=== PATIENT | male | born 1940 | race Caucasian/White ===

== ENCOUNTER → 2016-12-11 18:24 | Emergency (ER) | payer MEDICARE, OTHER ==
[~2016-12-11 18:24] MED LIST: DOXYcycline CAP(*) 100 MG PO ONE
[2016-12-11 20:04] VITALS: BP 158/77
--- NOTE | 2017-02-05 21:05 | ED ---
Bite Injury/Animal - HPI Summary HPI Summary: Pt here w/ tick attached to Lt lower back. No other complaints. Needs assistance removing. He is unsure of length of time of attachment. Imms are UTD. No pain, no rash. - History of Current Complaint Chief Complaint: EDAnimalBite Stated Complaint: TICK Time Seen by Provider: 12/11/16 18:57 Hx Obtained From: Patient Pain Intensity: 0 Pain Scale Used: 0-10 Numeric - Allergies/Home Medications Allergies/Adverse Reactions: Allergies Allergy/AdvReac Type Severity Reaction Status Date / Time No Known Allergies Allergy Verified 12/11/16 18:26 PMH/Surg Hx/FS Hx/Imm Hx Previously Healthy: Yes Endocrine/Hematology History: Reports: Hx Thyroid Disease - HYPO Denies: Hx Anticoagulant Therapy, Hx Blood Disorders, Hx Diabetes Cardiovascular History: Reports: Hx Coronary Artery Disease - 2004 TRIPLE BYPASS , Hx Hypertension - ON MEDS Denies: Hx Congestive Heart Failure, Other Cardiovascular Problems/Disorders Respiratory History: Reports: Hx Sleep Apnea - MILD Denies: Other Respiratory Problems/Disorders GI History: Denies: Other GI Disorders History: Denies: Hx Renal Disease Musculoskeletal History: Denies: Other Musculoskeletal History Sensory History: Reports: Hx Cataracts - LEANN, Hx Contacts or Glasses - GLASSES Denies: Hx Hearing Aid Opthamlomology History: Reports: Hx Cataracts - LEANN, Hx Contacts or Glasses - GLASSES Neurological History: Denies: Other Neuro Impairments/Disorders - Surgical History Surgery Procedure, Year, and Place: 2004, [facility]LE BYPASS, [facility]. LEFT ARM FX A CHILD. 2005, [facility], [facility] Hx Anesthesia Reactions: No - Immunization History Immunizations Up to Date: Yes Infectious Disease History: No Infectious Disease History: Denies: Hx of Known/Suspected MRSA, Traveled Outside the [place] in Last 30 Days - Social History Alcohol Use: None Substance Use Type: Reports: None Smoking Status (MU): Never Smoked Tobacco Review of Systems Negative: Fever, Chills, Fatigue Negative: Chest Pain Negative: Shortness Of Breath Positive: no symptoms reported Negative: Arthralgia Skin: Other - see HPI Psychological: Normal All Other Systems Reviewed And Are Negative: Yes Physical Exam Triage Information Reviewed: Yes Vital Signs On Initial Exam: Initial Vitals Temp Pulse Resp BP Pulse Ox 97.4 F 72 18 176/91 97 12/11/16 18:26 12/11/16 18:26 12/11/16 18:26 12/11/16 18:26 12/11/16 18:26 Vital Signs Reviewed: Yes Appearance: Positive: Well-Appearing, No Pain Distress, Well-Nourished Skin: Positive: Warm, Dry - tick attached to Lt lower back - no EM rash Respiratory/Lung Sounds: Positive: Breath Sounds Present Cardiovascular: Positive: Pulses are Symmetrical in both Upper and Lower Extremities Musculoskeletal: Positive: Strength/ROM Intact Neurological: Positive: Sensory/Motor Intact, Alert, Oriented to Person Place, Time Psychiatric: Positive: Normal Procedures - Procedure Summary Procedure Summary: Tick removed completely w/ tick remover - area cleaned after with alcohol - pt tolerated well Diagnostics - Vital Signs Vital Signs Temp Pulse Resp BP Pulse Ox 12/11/16 19:50 99.5 F 58 16 158/77 12/11/16 18:26 97.4 F 72 18 176/91 97 - Laboratory Lab Statement: Any lab studies that have been ordered have been reviewed, and results considered in the medical decision making process. Bite Injury Course/Dx - Course Course Of Treatment: Pt here w/ tick attached. Tick was removed and pt prophylactically treated with doxycycline. Reviewed danger s/sx of when to f/u. - Diagnoses Provider Diagnosis: Tick bite of back Discharge - Discharge Plan Condition: Stable Disposition: HOME Patient Education Materials: Tick Bite (ED) Referrals: Nathan Gallo MD [Primary Care Provider] - Additional Instructions: Keep wound clean - monitor for signs of erythema migrans rash (aka "bulls eye" rash). Follow-up with PCP next week. *If you develop fever, chills, joint aches, headache, palpitations, chest pain, follow-up with PCP JUANITO
== END | disposition home or self-care (01) ==
LOC: ED 18:24
DX: S30.860A Insect bite (nonvenomous) of lower back and pelvis, initial encounter (principal); W57.XXXA Bitten or stung by nonvenomous insect and other nonvenomous arthropods, initial encounter; Y93.9 Activity, unspecified; Y92.9 Unspecified place or not applicable; E03.9 Hypothyroidism, unspecified; I25.10 Atherosclerotic heart disease of native coronary artery without angina pectoris; I10 Essential (primary) hypertension; Z95.1 Presence of aortocoronary bypass graft; G47.30 Sleep apnea, unspecified
CPT/HCPCS: 99281; A9270-GY

== ENCOUNTER 2019-07-23 13:40 | Emergency (ER) | payer MEDICARE, OTHER ==
[2019-07-23] MEDS ORDERED: ceFAZolin 1 GM ADVAN(*) 1 GM in NS 0.9% 50 ML* 50 ML IVPB ONE (14:52)
--- NOTE | 2019-07-23 15:07 | ED ---
Lower Extremity - HPI Summary HPI Summary: 79-year-old presents with rash to left foot for the past couple days. He states it started on is left toe. Was concerned that he had gout which he states he has a history of. His states the redness has been spreading up the foot today. He states the area has been swelling to the entire foot today. He states he was seen in urgent care and they test his uric acid level and it was normal and had a normal foot x-ray. He denies any fevers or chills. Denies any chest pain or shortness of breath. Denies any coughing. Denies any other symptoms. He is diabetic. he denies any known injury. - History of Current Complaint Chief Complaint: EDExtremityLower Stated Complaint: LEFT FOOT PAIN Time Seen by Provider: 07/23/19 14:40 Pain Intensity: 5 - Allergies/Home Medications Allergies/Adverse Reactions: Allergies Allergy/AdvReac Type Severity Reaction Status Date / Time prednisone Allergy Altered Verified 07/23/19 14:02 Mental Status PMH/Surg Hx/FS Hx/Imm Hx Endocrine/Hematology History: Reports: Hx Thyroid Disease - HYPO Denies: Hx Anticoagulant Therapy, Hx Blood Disorders, Hx Diabetes Cardiovascular History: Reports: Hx Coronary Artery Disease - 2004 TRIPLE BYPASS , Hx Hypertension - ON MEDS Denies: Hx Congestive Heart Failure, Other Cardiovascular Problems/Disorders Respiratory History: Reports: Hx Sleep Apnea - MILD Denies: Other Respiratory Problems/Disorders GI History: Denies: Other GI Disorders History: Denies: Hx Renal Disease Musculoskeletal History: Denies: Other Musculoskeletal History Sensory History: Reports: Hx Cataracts - [facility], Hx Contacts or Glasses - GLASSES Opthamlomology History: Reports: Hx Cataracts - [facility], Hx Contacts or Glasses - GLASSES Neurological History: Denies: Other Neuro Impairments/Disorders - Surgical History Surgery Procedure, Year, and Place: 2005, [facility], [facility]. LEFT ARM FX A CHILD. 2005, [facility], [facility] Hx Anesthesia Reactions: No Infectious Disease History: No Infectious Disease History: Denies: Hx of Known/Suspected MRSA, Traveled Outside the [place] in Last 30 Days - Family History Known Family History: Positive: Non-Contributory - Social History Alcohol Use: None Substance Use Type: Reports: None Smoking Status (MU): Never Smoked Tobacco Review of Systems Negative: Fever Negative: Chest Pain Negative: Shortness Of Breath Positive: Edema - left foot Positive: Rash All Other Systems Reviewed And Are Negative: Yes Physical Exam Triage Information Reviewed: Yes Vital Signs On Initial Exam: Initial Vitals Temp Pulse Resp BP Pulse Ox 97.5 F 79 19 150/88 96 07/23/19 14:00 07/23/19 14:00 07/23/19 14:00 07/23/19 14:00 07/23/19 14:00 Vital Signs Reviewed: Yes Appearance: Positive: Well-Appearing Skin: Positive: Warm, Dry, Other - erythema with warmth to top of left foot Head/Face: Positive: Normal Head/Face Inspection Eyes: Positive: Normal, Conjunctiva Clear ENT: Positive: Pharynx normal Respiratory/Lung Sounds: Positive: Clear to Auscultation, Breath Sounds Present Cardiovascular: Positive: Normal, RRR Musculoskeletal: Positive: Strength/ROM Intact - left foot, Other - good pulses , edema noted to left foot, nontender calf Neurological: Positive: Normal Psychiatric: Positive: Normal Procedures - Sedation Patient Received Moderate/Deep Sedation with Procedure: No Diagnostics - Vital Signs Vital Signs Temp Pulse Resp BP Pulse Ox 07/23/19 14:00 97.5 F 79 19 150/88 96 - Laboratory Result Diagrams: 07/23/19 15:07 07/23/19 15:07 Lab Statement: Any lab studies that have been ordered have been reviewed, and results considered in the medical decision making process. Lower Extremity Course/Dx - Course Course Of Treatment: 79-year-old presents with rash to left foot for the past couple days. He states it started on is left toe. Was concerned that he had gout which he states he has a history of. His states the redness has been spreading up the foot today. He states the area has been swelling to the entire foot today. He states he was seen in urgent care and they test his uric acid level and it was normal and had a normal foot x-ray. He denies any fevers or chills. Denies any chest pain or shortness of breath. Denies any coughing. Denies any other symptoms. He is diabetic. On exam has edema noted to left foot. Has erythema and warmth of the area. Gave dose of cefazolin. White blood cell count 11. renal function similiar to previous. urine shows potential uti but patient denies uti symptoms. will treat cellulitis with keflex which would cover for potential uti. told follow up with primary. warned signs return to ED for. patient understand and agrees with plan. - Diagnoses Differential Diagnosis/HQI/PQRI: Positive: Cellulitis, Contusion, Other - gout Provider Diagnoses: Cellulitis of left foot Discharge ED - Sign-Out/Discharge Documenting (check all that apply): Patient Departure - Discharge Plan Condition: Good Disposition: HOME Prescriptions: Cephalexin CAP* [Keflex CAP*] 500 mg PO TID #30 cap Patient Education Materials: Cellulitis (ED) Referrals: Nathan Gallo MD [Primary Care Provider] - Additional Instructions: Take Keflex three a day for 10 days elevate leg Take tyenlol every 6 hours for pain Follow up with primary within 3 days Return to ED if develop fever, area of redness spreads after two days on antibiotics, or any new or worsening symptoms - Billing Disposition and Condition Condition: GOOD Disposition: Home
[2019-07-23 15:16] LABS: ABS Basophils 0.1 10^3/ul (0-0.2); ABS Eosinophils 0.3 10^3/ul (0-0.6); ABS Lymphocytes 1.8 10^3/ul (1.0-4.8); ABS Monocytes 0.7 10^3/ul (0-0.8); ABS Neutrophils 8.2 10^3/ul (1.5-7.7); Eosinophil % 2.6 %; Hematocrit 41 % (42-52); Hemoglobin 13.6 g/dL (14.0-18.0); Lymphocyte % 16.2 %; Mean Corpuscular HGB Conc 33 g/dL (31-36); Mean Corpuscular Hemoglobin 30 pg (27-31); Mean Corpuscular Volume 91 fL (80-94); Mean Platelet Volume 8.2 fL (7.4-10.4); Platelet Count 279 10^3/uL (150-450); Red Blood Count 4.52 10^6 /uL (4.18-5.48); Red Cell Distribution Width 14 % (10-15)
[2019-07-23 15:30] LABS: Activated Partial Thrombo Time 35.6 seconds (26.0-38.0); INR 1.09 (0.82-1.09)
[2019-07-23 16:10] LABS: Albumin 4.4 g/dL (3.2-5.2); Albumin/Globulin Ratio 1.2 (1-3); Calcium 9.9 mg/dL (8.6-10.3); EGFR African American 57.4 (>60); EGFR Non-African American 47.5 (>60); Globulin 3.6 g/dL (2-4); Total Bilirubin 0.5 mg/dL (0.2-1.0)
[2019-07-23 16:19] LABS: Urine Appearance Cloudy; Urine Bilirubin Negative (Negative); Urine Blood Negative (Negative); Urine Color Amber; Urine Glucose Negative (Negative); Urine Ketones Negative (Negative); Urine Nitrite Negative (Negative); Urine Protein 1+(30 mg/dL) (Negative); Urine Specific Gravity 1.025 (1.010-1.030); Urine Urobilinogen Negative (Negative)
[2019-07-23 16:22] LABS: Urine Bacteria Absent (Absent); Urine Red Blood Cell 2+(6-10/hpf) (Absent); Urine White Blood Cell 2+(11-20/hpf) (Absent)
[2019-07-23 16:36] VITALS: BP 138/80
== END 2019-07-23 16:35 | disposition home or self-care (01) ==
LOC: ED 13:40
DX: L03.116 Cellulitis of left lower limb (principal); R21 Rash and other nonspecific skin eruption; R60.9 Edema, unspecified; E03.9 Hypothyroidism, unspecified; I25.10 Atherosclerotic heart disease of native coronary artery without angina pectoris; I10 Essential (primary) hypertension; Z95.9 Presence of cardiac and vascular implant and graft, unspecified
CPT/HCPCS: 36415; 80053; 81003; 81015; 83605; 85025; 85610; 85730; 87040; 87086; 96365; 99282; J0690